=== PATIENT | male | born 1990 | race Caucasian/White ===

== ENCOUNTER 2020-06-15 14:03 | Emergency (ER) | payer OTHER ==
[2020-06-15 14:21] VITALS: BP 138/69; PULSE 83; TEMP 98; BMI 26.3
[2020-06-15] MEDS ORDERED: ACETAMINOPHEN 500 MG TABLET (FP) PO ONE (15:28)
[2020-06-15] MEDS ORDERED: METOCLOPRAMIDE HCL 10 MG TABLET (FP) PO ONE ×2 (15:35→15:39)
[2020-06-15] MEDS ORDERED: ACETAMINOPHEN 500 MG TABLET (FP) ONE (15:35)
[2020-06-15] MEDS ORDERED: MECLIZINE HCL 25 MG TABLET (FP) PO ONE (15:53)
[2020-06-15] MEDS ORDERED: MECLIZINE HCL 25 MG TABLET (FP) ONE (16:01)
[2020-06-15] MEDS ORDERED: SODIUM CHLORIDE 0.9% 500 ML INFUS.BAG IV ONE (16:07)
[2020-06-15 16:24] LABS: BASO % 0.5 % (0-2.0); EOS % 2.8 % (0-4.5); HEMATOCRIT 46.3 % (35.4-49); HEMOGLOBIN 15.7 GM/dL (11.7-16.9); LYMPH % 26.7 % (8-40); MCH 29.5 pg (25.7-33.7); MCHC 33.9 g/dl (32.0-35.9); MEAN PLT VOLUME 9.6 fl (7.5-11.1); MONO % 6.8 % (3.8-10.2); NEUT % 63.2 % (42.8-82.8); PLATELET COUNT 228 K/MM3 (134-434); RBC 5.32 M/mm3 (4.00-5.60); RDW 13.5 % (11.9-15.9); WHITE BLOOD COUNT 6.2 K/mm3 (4.0-10.0)
[2020-06-15 16:40] LABS: CALCIUM 9.2 mg/dL (8.5-10.1)
[2020-06-15 16:41] LABS: ALBUMIN 4.2 g/dl (3.4-5.0); BLOOD UREA NITROGEN 19.9 mg/dL (7-18)
[2020-06-15 16:46] LABS: BILIRUBIN,TOTAL 0.5 mg/dL (0.2-1); TOT PROT 7.6 g/dl (6.4-8.2)
== END 2020-06-15 17:24 | disposition home or self-care (01) ==
LOC: JER 14:03
DX: R42 Dizziness and giddiness (principal)
CPT/HCPCS: 36415; 70450-TC; 80053; 85025; 99285-25; C9803; U0003

== ENCOUNTER 2020-06-27 01:16 | Emergency (ER) | payer OTHER ==
[2020-06-27 01:51] VITALS: BP 132/71; PULSE 72; TEMP 98.4; BMI 25.0
[2020-06-27] MEDS ORDERED: ACETAMINOPHEN 500 MG TABLET (FP) PO ONE (02:22)
[2020-06-27] MEDS ORDERED: ACETAMINOPHEN 325 MG TABLET (FP) ONE (02:27)
[2020-06-27 02:40] LABS: BASO % 0.6 % (0-2.0); EOS % 3.6 % (0-4.5); HEMOGLOBIN 15.1 GM/dL (11.7-16.9); LYMPH % 39.1 % (8-40); MCH 29.4 pg (25.7-33.7); MCHC 33.6 g/dl (32.0-35.9); MEAN CELL VOLUME 87.4 fl (80-96); MEAN PLT VOLUME 9.1 fl (7.5-11.1); NEUT % 48.7 % (42.8-82.8); PLATELET COUNT 189 K/MM3 (134-434); RBC 5.15 M/mm3 (4.00-5.60); RDW 13.3 % (11.9-15.9); WHITE BLOOD COUNT 6.5 K/mm3 (4.0-10.0)
[2020-06-27 03:07] LABS: POTASSIUM 4.9 mmol/L (3.5-5.1); SODIUM 137 mmol/L (136-145)
[2020-06-27 03:11] LABS: ALBUMIN 4.3 g/dl (3.4-5.0); CALCIUM 9.2 mg/dL (8.5-10.1)
[2020-06-27 03:12] LABS: BLOOD UREA NITROGEN 25.8 mg/dL (7-18); CO2 29 mmol/L (21-32); GLUCOSE,RANDOM 85 mg/dL (74-106)
[2020-06-27 03:15] LABS: SGOT/AST 19 U/L (15-37); SGPT/ALT 38 U/L (13-61)
[2020-06-27 03:16] LABS: TOT PROT 7.5 g/dl (6.4-8.2)
[2020-06-27 03:18] LABS: ALK PHOS 97 U/L (45-117)
[2020-06-27 03:19] LABS: CHLORIDE 105 mmol/L (98-107)
[2020-06-27 03:27] LABS: ANION GAP 3 MMOL/L (8-16); BILIRUBIN,TOTAL 0.5 mg/dL (0.2-1)
[2020-06-27] MEDS ORDERED: LIDOCAINE 5% TOPICAL PATCH TP ONE (03:58)
[2020-06-27] MEDS ORDERED: LIDOCAINE 5% TOPICAL PATCH ONE (04:15)
[2020-06-27] MEDS ORDERED: LIDOCAINE PATCH REMOVAL MC SCH (22:00)
== END 2020-06-27 04:18 | disposition home or self-care (01) ==
LOC: JER 01:16
DX: R10.9 Unspecified abdominal pain (principal)
CPT/HCPCS: 36415; 71045-TC-FY; 80053; 84484; 85025; 93005; 93010; 99284-25

== ENCOUNTER 2020-07-18 09:09 | Emergency (ER) | payer OTHER ==
[2020-07-18 09:18] VITALS: TEMP 97.9; BMI 26.4
[2020-07-18 13:20] LABS: PH,URINE 8.5 (5.0-8.0); URINE APPEARANCE CLEAR; URINE BILIRUBIN NEGATIVE (NEGATIVE); URINE COLOR YELLOW; URINE GLUCOSE (UA) NEGATIVE (NEGATIVE); URINE KETONE NEGATIVE (NEGATIVE); URINE LEUK ESTERASE NEGATIVE (NEGATIVE); URINE NITRITE NEGATIVE (NEGATIVE); URINE PROTEIN NEGATIVE (NEGATIVE); URINE UROBILINOGEN 0.2 mg/dL (0.2-1.0)
[2020-07-18 13:46] LABS: BASO % 0.7 % (0-2.0); EOS % 1.4 % (0-4.5); HEMATOCRIT 46.2 % (35.4-49); HEMOGLOBIN 15.8 GM/dL (11.7-16.9); LYMPH % 27.2 % (8-40); MCH 29.6 pg (25.7-33.7); MCHC 34.1 g/dl (32.0-35.9); MEAN CELL VOLUME 86.9 fl (80-96); MONO % 6.7 % (3.8-10.2); PLATELET COUNT 233 K/MM3 (134-434); RBC 5.32 M/mm3 (4.00-5.60); RDW 13.5 % (11.9-15.9)
[2020-07-18 14:09] LABS: CALCIUM 9.4 mg/dL (8.5-10.1)
[2020-07-18 14:10] LABS: ALBUMIN 4.6 g/dl (3.4-5.0); BLOOD UREA NITROGEN 13.1 mg/dL (7-18); MAGNESIUM 2.2 mg/dL (1.8-2.4)
[2020-07-18 14:13] LABS: CREATININE 0.9 mg/dL (0.55-1.3)
[2020-07-18 14:15] LABS: BILIRUBIN,TOTAL 0.8 mg/dL (0.2-1); TOT PROT 8.2 g/dl (6.4-8.2)
[2020-07-18 15:20] VITALS: BP 130/87; PULSE 89
== END 2020-07-18 15:15 | disposition home or self-care (01) ==
LOC: JER 09:09
DX: R10.84 Generalized abdominal pain (principal)
CPT/HCPCS: 36415; 80053; 81003; 83690; 83735; 85025; 87086; 99283-25

== ENCOUNTER 2024-08-18 06:46 | Emergency (ER) | payer OTHER ==
[2024-08-18 07:01] VITALS: TEMP 97.9; BMI 29.2
[2024-08-18] MEDS ORDERED: ACETAMINOPHEN INJECTION 100 ML ONE (07:38)
[2024-08-18] MEDS: ACETAMINOPHEN 1000 MG/100 ML BAG IVPB ONE (07:55)
[2024-08-18] MEDS ORDERED: ASPIRIN 81 MG CHEWABLE TABLETS ONE (07:58)
[2024-08-18] MEDS: ASPIRIN 81 MG CHEWABLE TABLETS PO ONE (08:00)
[2024-08-18 08:10] LABS: BASO % 0.8 % (0-2.0); EOS % 2.5 % (0-4.5); HEMOGLOBIN 14.7 GM/dL (11.7-16.9); LYMPH % 25.6 % (8-40); MCH 28.8 pg (25.7-33.7); MCHC 32.7 g/dl (32.0-35.9); MEAN CELL VOLUME 88.1 fl (80-96); MEAN PLT VOLUME 8.5 fl (7.5-11.1); MONO % 8.9 % (3.8-10.2); NEUT % 62.2 % (42.8-82.8); PLATELET COUNT 224 10^3/uL (134-434); RDW 13.2 % (11.9-15.9); WHITE BLOOD COUNT 5.9 K/mm3 (4.0-10.0)
[2024-08-18 08:25] LABS: POTASSIUM 4.8 mmol/L (3.5-5.1)
[2024-08-18 08:27] LABS: CALCIUM 9.5 mg/dL (8.5-10.1)
[2024-08-18 08:28] LABS: BLOOD UREA NITROGEN 14.6 mg/dL (7-18)
[2024-08-18 08:32] LABS: CHOLESTEROL 182 mg/dL (50-200)
[2024-08-18 08:32] LABS: BILIRUBIN,TOTAL 0.7 mg/dL (0.2-1); TOT PROT 7.1 g/dl (6.4-8.2)
[2024-08-18 08:33] LABS: LDL CHOLESTEROL (ONLY SJRH) 119 mg/dL (5-100)
[2024-08-18 08:33] LABS: INR 1.11 (0.83-1.09); PROTHROMBIN TIME (PATIENT) 12.1 SEC (9.7-13.0)
[2024-08-18 08:35] LABS: HDL CHOLESTEROL 52 mg/dL (40-60)
[2024-08-18 08:36] LABS: ACTIVATED PTT 26.8 SECONDS (25.2-36.5)
[2024-08-18 12:12] VITALS: BP 122/76; PULSE 63; RESP 18
[2024-08-18] MEDS ORDERED: KETOROLAC TROMETHAMINE 30 MG/1 ML VIAL ONE (12:18)
[2024-08-18] MEDS: KETOROLAC TROMETHAMINE 15 MG/ML VIAL IVPUSH ONE (12:22)
== END 2024-08-18 12:57 | disposition short-term general hospital (02) ==
LOC: JER 06:46
PROC: 3E033NZ Introduction of Analgesics, Hypnotics, Sedatives into Peripheral Vein, Percutaneous Approach (ICD-10-PCS; principal; 2024-08-18)
DX: R07.9 Chest pain, unspecified (principal); R55 Syncope and collapse; R06.02 Shortness of breath; R11.0 Nausea; Z82.49 Family history of ischemic heart disease and other diseases of the circulatory system
CPT/HCPCS: 0241U-QW; 36415; 71045-TC-FY; 80053; 80061; 82962; 84484; 85025; 85379; 85610; 85730; 86850; 86900; 86901; 93005; 93010; 99285-25; J0131